=== PATIENT | male | born 1980 | race Caucasian/White ===

== ENCOUNTER 2017-04-04 20:54 | Emergency (ER) | payer OTHER ==
[~2017-04-04] VITALS: Ht 180.3 cm; Wt 104.3 kg
--- NOTE | ~2017-04-04 | CR108 ---
[facility] A Service of [facility] & [facility] RADIOLOGY TEXT RESULTS PATIENT: EILZABETH RAMIREZ LOCATION: SED : 76 UNIT #: [id number] AGE: [address]: Ike Noe MD SEX: M ORDER DR: [id number] [place] [id number] E MR#: [id number] Acc #: [id number] NAME: ELIZABETH RAMIREZ : 1980 SEX: M STUDY DATE/TIME: 04/04/2017 21:11 UNIT: SED ROOM: STUDY DESCRIPTION: CR Finger 2 View 2nd Lt Attending Physician: Ike Noe M.D. Ordering Physician: Ike Noe M.D. Primary Care Physician: Adrian Kyle M.D. MEDICAL IMAGING REPORT This report is preliminary unless electronic signature is present. And eighth and at 03:10 EXAM 3 views of the left second finger,04/04/2017 HISTORY 36-year-old male with cut to the left second finger with a saw today. FINDINGS There is a comminuted interarticular fracture of the distal phalanx of the left second finger. The fracture predominantly is seen along the posterior cortical margin, there is displacement of bony fragments posteriorly. Overlying soft tissue swelling is present. No definite retained radiopaque foreign body is seen. IMPRESSION 1. Comminuted interarticular fracture involving the proximal aspect of the distal phalanx left second finger with displacement of bony fragments. Overlying soft tissue swelling. No gross dislocation. Dictated by... Marie Braun M.D. THIS IS AN ELECTRONICALLY VERIFIED REPORT Marie Braun M.D. at 04/07/2017 9:53 AM LLH/esther TD: 04/06/2017 07:38 JOB #: [id number] MEDICAL IMAGING REPORT Page 1 of 1
[~2017-04-04 20:54] MED LIST: AMOXICILLIN500 M1 PO; BENTYL10 MG PO; FAMOTIDINE PO; LORTAB 7.5-5001 TAB PO; NO MEDICATIONS; PHENERGAN DM1 ML PO; PHENERGAN25 M1 PO; VOLTAREN75 MG PO
== END 2017-04-04 22:17 ==
LOC: SED 20:54
DX: S62.631B Displaced fracture of distal phalanx of left index finger, initial encounter for open fracture (principal); Z23 Encounter for immunization; W26.9XXA Contact with unspecified sharp object(s), initial encounter
CPT/HCPCS: 73140; 90471; 90715; 96374; 96375; 99283; J2270; J2405